=== PATIENT | female | born 1980 | race American Indian/Alaskan Native ===

== ENCOUNTER 2019-07-24 07:11 | Emergency (ER) | payer BC, OTHER ==
[2019-07-24] MEDS ORDERED: methylPREDNISolone Sodium Succinate 125 MG/2 ML SDV IM ONE (07:56)
--- NOTE | 2019-07-24 08:47 | EDM.PDOC ---
ED HPI GENERAL MEDICAL PROBLEM - General Chief Complaint: ENT Problem Stated Complaint: SORE THROAT Time Seen by Provider: 07/24/19 07:50 Source of Information: Reports: Patient History Limitations: Reports: No Limitations - History of Present Illness INITIAL COMMENTS - FREE TEXT/NARRATIVE: HISTORY AND PHYSICAL: History of present illness: Patient is a 39-year-old female who presents to the ED today with concern of throat discomfort and feeling as if something is "stuck" in her throat. Patient states that she had this sensation occur when she woke up this morning. Patient states that times when the sensation of feeling like something is "stuck" has to take a deep breath. Patient states that this is not been related to eating or drinking and she has been able to swallow liquids and solids without difficulty. Patient states that is the front of her throat that is sore and feels as if the muscles around it are sore. Patient denies any other symptoms or concerns. Patient denies fever, chills, chest pain, shortness of breath, or cough. Denies headache, neck stiff ness, change in vision, syncope, or near syncope. Denies nausea, vomiting, abdominal pain, diarrhea, constipation, or dysuria. Has not noted any blood in urine or stool. Patient has been eating and drinking appropriately. Review of systems: As per history of present illness and below otherwise all systems reviewed and negative. Past medical history: As per history of present illness and as reviewed below otherwise noncontributory. Surgical history: As per history of present illness and as reviewed below otherwise noncontributory. Social history: See social history for further information Family history: As per history of present illness and as reviewed below otherwise noncontributory. Physical exam: General: Patient is alert, oriented, and in no acute distress. Patient sitting comfortably on exam table. HEENT: No lip edema, tongue edema, or oropharyngeal edema. No stridor. Otherwise, atraumatic, normocephalic, pupils equal and reactive bilaterally, negative for conjunctival pallor or scleral icterus, mucous membranes moist, TMs normal bilaterally, throat mildly erythematous without exudate, uvula midline, neck supple, nontender, trachea midline. No drooling or trismus noted. No meningeal signs. No hot potato voice noted. Lungs: Clear to auscultation, breath sounds equal bilaterally, chest nontender. Heart: S1S2, regular rate and rhythm without overt murmur Abdomen: Soft, nondistended, nontender. Negative for masses or hepatosplenomegaly. Negative for costovertebral tenderness. Pelvis: Stable nontender. Genitourinary: Deferred. Rectal: Deferred. Skin: Intact, warm, dry. No lesions or rashes noted. Extremities: Atraumatic, negative for cords or calf pain. Neurovascular unremarkable. Neuro: Awake, alert, oriented. Cranial nerves II through XII unremarkable. Cerebellum unremarkable. Motor and sensory unremarkable throughout. Exam nonfocal. Notes: HEART score 0. While awaiting imaging results, patient states she is starting to feel a burning chest discomfort. Additional diagnotics performed. Discussed importance for follow-up with a primary care provider. Voices understanding and is agreeable to plan of care. Denies any further questions or concerns at this time. Diagnostics: Soft tissue neck XR, Strep, EKG, CBC, CMP, UA, uhcg, CXR, trop, lipase, Therapeutics: Solumedrol Prescription: None Impression: Chest pain, unspecified Throat discomfort Plan: 1. You can alternate ibuprofen and Tylenol as directed for pain and discomfort. 2. Follow-up with a primary care provider as discussed. Return to the ED as needed and as discussed. Definitive disposition and diagnosis as appropriate pending reevaluation and review of above. throat Pain Score (Numeric/FACES): 4 - Related Data Allergies Allergy/AdvReac Type Severity Reaction Status Date / Time Iodinated Contrast Media Allergy Sneezing Verified 07/24/19 07:25 [Iodinated Contrast Media - IV Dye] iodine Allergy Sneezing Verified 07/24/19 07:25 latex Allergy Swelling Verified 07/24/19 07:25 lidocaine Allergy Rash Verified 07/24/19 07:25 meperidine HCl [From Demerol] Allergy Swelling Verified 07/24/19 07:25 Penicillins Allergy Rash Verified 07/24/19 07:25 Home Meds: Home Meds azaTHIOprine [Azathioprine] 3 tab PO DAILY 07/24/19 [History] Past Medical History Gastrointestinal History: Reports: Other (See Below) Other Gastrointestinal History: ulcerative colitis - Infectious Disease History Infectious Disease History: Reports: Chicken Pox - Past Surgical History GI Surgical History: Reports: Colonoscopy Social & Family History - Family History Family Medical History: Noncontributory - Tobacco Use Smoking Status *Q: Never Smoker - Recreational Drug Use Recreational Drug Use: No ED ROS GENERAL - Review of Systems Review Of Systems: Comprehensive ROS is negative, except as noted in HPI. ED EXAM, GENERAL - Physical Exam Exam: See Below (see dictation) Course - Vital Signs Last Recorded V/S: Last Vital Signs Temp 97.2 F 07/24/19 09:39 Pulse 82 07/24/19 10:25 Resp 18 07/24/19 10:25 BP 127/83 07/24/19 10:25 Pulse Ox 98 07/24/19 10:25 - Orders/Labs/Meds Orders: Active Orders 24 hr Category Date Time Status EKG Documentation Completion [RC] STAT Care 07/24/19 09:25 Active CULTURE STREP A CONFIRMATION [RM] Stat Lab 07/24/19 09:00 Results STREP SCRN A RAPID W CULT CONF [RM] Stat Lab 07/24/19 09:00 Results Labs: Laboratory Tests 07/24/19 07/24/19 07/24/19 Range/Units 09:46 09:46 10:01 WBC 7.13 (4.0-11.0) K/uL RBC 4.48 (4.30-5.90) M/uL Hgb 14.1 (12.0-16.0) g/dL Hct 41.4 (36.0-46.0) % MCV 92.4 (80.0-98.0) fL MCH 31.5 (27.0-32.0) pg MCHC 34.1 (31.0-37.0) g/dL RDW Std Deviation 44.2 (28.0-62.0) fl RDW Coeff of Stephen 13 (11.0-15.0) % Plt Count 374 (150-400) K/uL MPV 9.30 (7.40-12.00) fL Neut % (Auto) 70.9 (48.0-80.0) % Lymph % (Auto) 20.6 (16.0-40.0) % Cochran % (Auto) 6.9 (0.0-15.0) % Eos % (Auto) 0.8 (0.0-7.0) % Baso % (Auto) 0.8 (0.0-1.5) % Neut # (Auto) 5.1 (1.4-5.7) K/uL Lymph # (Auto) 1.5 (0.6-2.4) K/uL Cochran # (Auto) 0.5 (0.0-0.8) K/uL Eos # (Auto) 0.1 (0.0-0.7) K/uL Baso # (Auto) 0.1 (0.0-0.1) K/uL Nucleated RBC % 0.0 /100WBC Nucleated RBCs # 0 K/uL Sodium 141 (136-145) mmol/L Potassium 4.3 (3.5-5.1) mmol/L Chloride 104 (98-107) mmol/L Carbon Dioxide 30.0 (21.0-32.0) mmol/L BUN 11 (7.0-18.0) mg/dL Creatinine 0.9 (0.6-1.0) mg/dL Est Cr Clr Drug Dosing 70.11 mL/min Estimated GFR (MDRD) > 60.0 ml/min Glucose 96 (74-106) mg/dL Calcium 9.8 (8.5-10.1) mg/dL Total Bilirubin 0.5 (0.2-1.0) mg/dL AST 15 (15-37) IU/L ALT 24 (14-63) IU/L Alkaline Phosphatase 57 (46-116) U/L Troponin I < 0.050 (0.000-0.056) ng/mL Total Protein 8.0 (6.4-8.2) g/dL Albumin 4.4 (3.4-5.0) g/dL Globulin 3.6 (2.6-4.0) g/dL Albumin/Globulin Ratio 1.2 (0.9-1.6) Lipase 94 (73-393) U/L Urine Color YELLOW Urine Appearance CLEAR Urine pH 7.5 (5.0-8.0) Ur Specific [place] 1.015 (1.001-1.035) Urine Protein NEGATIVE (NEGATIVE) mg/dL Urine Glucose (UA) NEGATIVE (NEGATIVE) mg/dL Urine Ketones NEGATIVE (NEGATIVE) mg/dL Urine Occult Blood NEGATIVE (NEGATIVE) Urine Nitrite NEGATIVE (NEGATIVE) Urine Bilirubin NEGATIVE (NEGATIVE) Urine Urobilinogen 0.2 (<2.0) EU/dL Ur Leukocyte Esterase NEGATIVE (NEGATIVE) Urine HCG, Qual (NEGATIVE) 07/24/19 Range/Units 10:01 WBC (4.0-11.0) K/uL RBC (4.30-5.90) M/uL Hgb (12.0-16.0) g/dL Hct (36.0-46.0) % MCV (80.0-98.0) fL MCH (27.0-32.0) pg MCHC (31.0-37.0) g/dL RDW Std Deviation (28.0-62.0) fl RDW Coeff of Stephen (11.0-15.0) % Plt Count (150-400) K/uL MPV (7.40-12.00) fL Neut % (Auto) (48.0-80.0) % Lymph % (Auto) (16.0-40.0) % [place]ran % (Auto) (0.0-15.0) % Eos % (Auto) (0.0-7.0) % Baso % (Auto) (0.0-1.5) % Neut # (Auto) (1.4-5.7) K/uL Lymph # (Auto) (0.6-2.4) K/uL [place]ran # (Auto) (0.0-0.8) K/uL Eos # (Auto) (0.0-0.7) K/uL Baso # (Auto) (0.0-0.1) K/uL Nucleated RBC % /100WBC Nucleated RBCs # K/uL Sodium (136-145) mmol/L Potassium (3.5-5.1) mmol/L Chloride (98-107) mmol/L Carbon Dioxide (21.0-32.0) mmol/L BUN (7.0-18.0) mg/dL Creatinine (0.6-1.0) mg/dL Est Cr Clr Drug Dosing mL/min Estimated GFR (MDRD) ml/min Glucose (74-106) mg/dL Calcium (8.5-10.1) mg/dL Total Bilirubin (0.2-1.0) mg/dL AST (15-37) IU/L ALT (14-63) IU/L Alkaline Phosphatase (46-116) U/L Troponin I (0.000-0.056) ng/mL Total Protein (6.4-8.2) g/dL Albumin (3.4-5.0) g/dL Globulin (2.6-4.0) g/dL Albumin/Globulin Ratio (0.9-1.6) Lipase (73-393) U/L Urine Color Urine Appearance Urine pH (5.0-8.0) Ur Specific [place] (1.001-1.035) Urine Protein (NEGATIVE) mg/dL Urine Glucose (UA) (NEGATIVE) mg/dL Urine Ketones (NEGATIVE) mg/dL Urine Occult Blood (NEGATIVE) Urine Nitrite (NEGATIVE) Urine Bilirubin (NEGATIVE) Urine Urobilinogen (<2.0) EU/dL Ur Leukocyte Esterase (NEGATIVE) Urine HCG, Qual NEGATIVE (NEGATIVE) Meds: Medications Discontinued Medications Generic Name Dose Route Start Last Admin Trade Name Christian PRN Reason Stop Dose Admin Methylprednisolone Sodium Succinate 125 mg 07/24/19 07:56 07/24/19 08:44 Solu-Medrol IM 07/24/19 07:57 125 mg ONETIME ONE Administration Departure - Departure Time of Disposition: 10:23 Disposition: Home, Self-Care 01 Clinical Impression: Throat discomfort Chest pain Qualifiers: Chest pain type: unspecified Qualified Code(s): R07.9 - Chest pain, unspecified - Discharge Information Instructions: Nonspecific Chest Pain, Adult, [id number], Sore Throat, Easy-to -Read Referrals: PCP,None [Primary Care Provider] - Forms: ED Department Discharge Additional Instructions: The following information is given to patients seen in the emergency department who are being discharged to home. This information is to outline your options for follow-up care. We provide all patients seen in our emergency department with a follow-up referral. The need for follow-up, as well as the timing and circumstances, are variable depending upon the specifics of your emergency department visit. If you don't have a primary care physician on staff, we will provide you with a referral. We always advise you to contact your personal physician following an emergency department visit to inform them of the circumstance of the visit and for follow-up with them and/or the need for any referrals to a consulting specialist. The emergency department will also refer you to a specialist when appropriate. This referral assures that you have the opportunity for follow-up care with a specialist. All of these measure are taken in an effort to provide you with optimal care, which includes your follow-up. Under all circumstances we always encourage you to contact your private physician who remains a resource for coordinating your care. When calling for follow-up care, please make the office aware that this follow-up is from your recent emergency room visit. If for any reason you are refused follow-up, please contact the [facility] Emergency Department at and asked to speak to the emergency department charge nurse. [facility] [address] [place] [id number] [facility] [address] [place] [id number] 1. You can alternate ibuprofen and Tylenol as directed for pain and discomfort. 2. Follow-up with a primary care provider as discussed. Return to the ED as needed and as discussed. Sepsis Event Note - Evaluation Sepsis Screening Result: No Definite Risk - Focused Exam Vital Signs: Vital Signs Temp Pulse Resp BP Pulse Ox 07/24/19 10:25 82 18 127/83 98 07/24/19 09:39 97.2 F 70 18 138/82 99 07/24/19 08:43 74 18 142/84 H 99 07/24/19 07:25 97.8 F 80 20 150/93 H 100 Date Exam was Performed: 07/24/19 Time Exam was Performed: 14:28 - My Orders Last 24 Hours: My Active Orders 07/24/19 09:00 CULTURE STREP A CONFIRMATION [RM] Stat STREP SCRN A RAPID W CULT CONF [RM] Stat 07/24/19 09:25 EKG Documentation Completion [RC] STAT - Assessment/Plan Last 24 Hours: My Active Orders 07/24/19 09:00 CULTURE STREP A CONFIRMATION [RM] Stat STREP SCRN A RAPID W CULT CONF [RM] Stat 07/24/19 09:25 EKG Documentation Completion [RC] STAT
--- NOTE | 2019-07-24 09:50 | CR ---
HISTORY: Anterior neck pain. TECHNIQUE: Two views of the soft tissues of the neck. COMPARISON: No prior. FINDINGS: The epiglottis appears unremarkable. No prevertebral soft tissue swelling. Minor loss of disc height at C5-C6. Disc height at other levels is maintained. IMPRESSION: No prevertebral soft tissue swelling or abnormal thickening of the epiglottis. Dictated by Jerome Bell MD @ 07/24/2019 9:48:22 AM Dictated by: Jerome Bell MD @ 07/24/2019 09:48:26 (Electronically Signed)
--- NOTE | 2019-07-24 10:14 | CR ---
HISTORY: Chest pain. TECHNIQUE: One view chest. COMPARISON: No prior. FINDINGS: Cardiac size and pulmonary vasculature are within normal limits. There is no lung infiltrate or pulmonary edema. No pneumothorax or pleural effusion. No acute bony abnormality. IMPRESSION: No acute disease. Dictated by Jerome Bell MD @ 07/24/2019 10:12:16 AM Dictated by: Jerome Bell MD @ 07/24/2019 10:12:21 (Electronically Signed)
[2019-07-24 10:19] LABS: BLOOD UREA NITROGEN,BUN 11 mg/dL (7.0-18.0); CHLORIDE,CL 104 mmol/L (98-107); GLUCOSE RANDOM 96 mg/dL (74-106); LIPASE 94 U/L (73-393); POTASSIUM,K 4.3 mmol/L (3.5-5.1); SODIUM,NA 141 mmol/L (136-145)
== END 2019-07-24 10:30 | disposition home or self-care (01) ==
LOC: MW.ED 07:11
DX: R07.0 Pain in throat (principal); R07.9 Chest pain, unspecified; Z88.0 Allergy status to penicillin; Z91.040 Latex allergy status; Z91.041 Radiographic dye allergy status; Z88.8 Allergy status to other drugs, medicaments and biological substances; Z79.899 Other long term (current) drug therapy
CPT/HCPCS: 36415; 70360; 71045; 80053; 81003; 81025; 83690; 84484; 85025; 87081; 87880; 93005; 96372; 99283; J2930

== ENCOUNTER 2019-07-25 12:56 | Emergency (ER) | payer BC, OTHER ==
[2019-07-25] MEDS ORDERED: Albuterol/Ipratropium 3.0-0.5 MG/3 ML Neb Soln NEB ONE (13:57)
[2019-07-25] MEDS ORDERED: LORazepam 1 MG Tab PO ONE (13:58)
--- NOTE | 2019-07-25 14:29 | EDM.PDOC ---
ED [facility] GENERAL MEDICAL PROBLEM - General Chief Complaint: ENT Problem Stated Complaint: SORE THROAT Time Seen by Provider: 07/25/19 13:04 Source of Information: Reports: Patient History Limitations: Reports: No Limitations - History of Present Illness INITIAL COMMENTS - FREE TEXT/NARRATIVE: HISTORY AND PHYSICAL: History of present illness: Patient is a 39-year-old female who presents to the ED today with concern of various complaints. Patient states she is currently having a "burning sensation " in her throat and chest and was seen and evaluated yesterday in the ED for this as well. Patient states after being seen in the ED yesterday, she had improvement of her symptoms until she woke up again this morning. Patient states she had a return of the sensation and decided to take prednisone 30 mg at home at about 10 this morning thinking that maybe this would help her symptoms but has not. Patient states she has prednisone available to her for her ulcerative colitis. Patient states her symptoms have returned again and she is continuing to have the burning sensation in her throat and her chest and states that she has also had palpitations along with it. Patient also complains of feeling like her throat is more swollen into her lungs which makes her feel like she has to take a deep breath in, which she states is how she felt yesterday. Patient states she has checked her heart rate and it has been 120-130s but then will go away after a few minutes. Patient states when this occurs she feels anxious and the burning sensation in her chest worsens. Patient does express that she does feel anxious and that this is worsening her symptoms. Patient denies fever, chills, chest pain, shortness of breath, or cough. Denies headache, neck stiff ness, change in vision, syncope, or near syncope. Denies nausea, vomiting, abdominal pain, diarrhea, constipation, or dysuria. Has not noted any blood in urine or stool. Patient has been eating and drinking appropriately. Review of systems: As per history of present illness and below otherwise all systems reviewed and negative. Past medical history: As per history of present illness and as reviewed below otherwise noncontributory. Surgical history: As per history of present illness and as reviewed below otherwise noncontributory. Social history: See social history for further information Family history: As per history of present illness and as reviewed below otherwise noncontributory. Physical exam: General: Patient is alert, oriented, and in no acute distress. Patient sitting comfortably on exam table but anxious appearing. HEENT: No lip edema, tongue edema, or oropharyngeal edema. No stridor. Atraumatic, normocephalic, pupils equal and reactive bilaterally, negative for conjunctival pallor or scleral icterus, mucous membranes moist, TMs normal bilaterally, throat clear, neck supple, nontender, trachea midline. No drooling or trismus noted. No meningeal signs. No hot potato voice noted. Lungs: Clear to auscultation, breath sounds equal bilaterally, chest nontender. Heart: S1S2, regular rate and rhythm without overt murmur Abdomen: Soft, nondistended, nontender. Negative for masses or hepatosplenomegaly. Negative for costovertebral tenderness. Pelvis: Stable nontender. Genitourinary: Deferred. Rectal: Deferred. Skin: Intact, warm, dry. No lesions or rashes noted. Extremities: Atraumatic, negative for cords or calf pain. Neurovascular unremarkable. Neuro: Awake, alert, oriented. Cranial nerves II through XII unremarkable. Cerebellum unremarkable. Motor and sensory unremarkable throughout. Exam nonfocal. Notes: I personally evaluated the patient yesterday in the ED. Patient does have a difficult time elaborating/expressing her symptoms to me both yesterday and today and in the ED today and is vague about her symptoms. Yesterday, she did receive a full cardiac work-up, including chest x-ray, troponin, EKG, and strep swab which were negative. Patient also received a soft tissue neck x-ray yesterday due to the sensation of feeling as if she has something stuck in her throat and swelling of throat which was unremarkable and exam yesterday showed no oropharyngeal edema. Exam today also negative for oropharyngeal edema or stridor. Patient does express improvement of symptoms with therapeutics in the ED today. EKG shows no acute changes from yesterday to today and reviewed with Dr. Haro. Dr. Haro verbally involved in patient care. Patient placed on expedited follow-up both with primary care provider. Voices understanding and is agreeable to plan of care. Denies any further questions or concerns at this time. Diagnostics: CBC, CMP, UA, lipase, troponin, ddimer, chest ct Therapeutics: Ativan, Duoneb Prescription: Proair inhaler, duoneb Impression: Atypical chest pain Throat discomfort Plan: 1. Take medication as prescribed. You can alternate ibuprofen and Tylenol as directed for pain and discomfort. 2. Follow-up with a primary care provider as discussed. Return to the ED as needed and as discussed. Definitive disposition and diagnosis as appropriate pending reevaluation and review of above. Throat Pain Score (Numeric/FACES): 5 - Related Data Allergies Allergy/AdvReac Type Severity Reaction Status Date / Time Iodinated Contrast Media Allergy Sneezing Verified 07/25/19 13:09 [Iodinated Contrast Media - IV Dye] iodine Allergy Sneezing Verified 07/25/19 13:09 latex Allergy Swelling Verified 07/25/19 13:09 lidocaine Allergy Rash Verified 07/25/19 13:09 meperidine HCl [From Demerol] Allergy Swelling Verified 07/25/19 13:09 Penicillins Allergy Rash Verified 07/25/19 13:09 Home Meds: Home Meds azaTHIOprine [Azathioprine] 3 tab PO DAILY 07/24/19 [History] Past Medical History Gastrointestinal History: Reports: Other (See Below) Other Gastrointestinal History: ulcerative colitis - Infectious Disease History Infectious Disease History: Reports: Chicken Pox - Past Surgical History GI Surgical History: Reports: Colonoscopy Social & Family History - Family History Family Medical History: Noncontributory - Tobacco Use Smoking Status *Q: Never Smoker Second Hand Smoke Exposure: No - Caffeine Use Caffeine Use: Reports: Tea, Other - Recreational Drug Use Recreational Drug Use: No ED ROS GENERAL - Review of Systems Review Of Systems: Comprehensive ROS is negative, except as noted in HPI. ED EXAM, GENERAL - Physical Exam Exam: See Below (see dictation) Course - Vital Signs Last Recorded V/S: Last Vital Signs Temp 97.5 F 07/25/19 13:03 Pulse 70 07/25/19 13:03 Resp 18 07/25/19 13:03 BP 145/85 H 07/25/19 13:03 Pulse Ox 97 07/25/19 13:03 - Orders/Labs/Meds Orders: Active Orders 24 hr Category Date Time Status EKG Documentation Completion [RC] STAT Care 07/25/19 13:10 Active RT Aerosol Therapy [RC] ASDIRECTED Care 07/25/19 13:57 Active Labs: Laboratory Tests 07/25/19 07/25/19 07/25/19 Range/Units 14:09 14:09 14:09 WBC 12.80 H (4.0-11.0) K/uL RBC 4.27 L (4.30-5.90) M/uL Hgb 13.7 (12.0-16.0) g/dL Hct 39.4 (36.0-46.0) % MCV 92.3 (80.0-98.0) fL MCH 32.1 H (27.0-32.0) pg MCHC 34.8 (31.0-37.0) g/dL RDW Std Deviation 44.6 (28.0-62.0) fl RDW Coeff of Stephen 13 (11.0-15.0) % Plt Count 348 (150-400) K/uL MPV 9.50 (7.40-12.00) fL Neut % (Auto) 92.6 H (48.0-80.0) % Lymph % (Auto) 4.5 L (16.0-40.0) % [place] % (Auto) 2.6 (0.0-15.0) % Eos % (Auto) 0.1 (0.0-7.0) % Baso % (Auto) 0.2 (0.0-1.5) % Neut # (Auto) 11.9 H (1.4-5.7) K/uL Lymph # (Auto) 0.6 (0.6-2.4) K/uL [place] # (Auto) 0.3 (0.0-0.8) K/uL Eos # (Auto) 0.0 (0.0-0.7) K/uL Baso # (Auto) 0.0 (0.0-0.1) K/uL Nucleated RBC % 0.0 /100WBC Nucleated RBCs # 0 K/uL D-Dimer, Quantitative 0.25 (0.0-0.50) mg/L FEU Sodium 139 (136-145) mmol/L Potassium 3.8 (3.5-5.1) mmol/L Chloride 102 (98-107) mmol/L Carbon Dioxide 27.9 (21.0-32.0) mmol/L BUN 16 (7.0-18.0) mg/dL Creatinine 1.0 (0.6-1.0) mg/dL Est Cr Clr Drug Dosing 63.10 mL/min Estimated GFR (MDRD) > 60.0 ml/min Glucose 115 H (74-106) mg/dL Calcium 9.1 (8.5-10.1) mg/dL Total Bilirubin 0.4 (0.2-1.0) mg/dL AST 20 (15-37) IU/L ALT 27 (14-63) IU/L Alkaline Phosphatase 64 (46-116) U/L Troponin I < 0.050 (0.000-0.056) ng/mL Total Protein 7.9 (6.4-8.2) g/dL Albumin 4.3 (3.4-5.0) g/dL Globulin 3.6 (2.6-4.0) g/dL Albumin/Globulin Ratio 1.2 (0.9-1.6) Lipase 121 (73-393) U/L Urine Color Urine Appearance Urine pH (5.0-8.0) Ur Specific [place] (1.001-1.035) Urine Protein (NEGATIVE) mg/dL Urine Glucose (UA) (NEGATIVE) mg/dL Urine Ketones (NEGATIVE) mg/dL Urine Occult Blood (NEGATIVE) Urine Nitrite (NEGATIVE) Urine Bilirubin (NEGATIVE) Urine Urobilinogen (<2.0) EU/dL Ur Leukocyte Esterase (NEGATIVE) Urine RBC (0-2/HPF) Urine WBC (0-5/HPF) Ur Epithelial Cells (NONE-FEW) Urine Bacteria (NEGATIVE) 07/25/19 Range/Units 14:30 WBC (4.0-11.0) K/uL RBC (4.30-5.90) M/uL Hgb (12.0-16.0) g/dL Hct (36.0-46.0) % MCV (80.0-98.0) fL MCH (27.0-32.0) pg MCHC (31.0-37.0) g/dL RDW Std Deviation (28.0-62.0) fl RDW Coeff of Stephen (11.0-15.0) % Plt Count (150-400) K/uL MPV (7.40-12.00) fL Neut % (Auto) (48.0-80.0) % Lymph % (Auto) (16.0-40.0) % [place] % (Auto) (0.0-15.0) % Eos % (Auto) (0.0-7.0) % Baso % (Auto) (0.0-1.5) % Neut # (Auto) (1.4-5.7) K/uL Lymph # (Auto) (0.6-2.4) K/uL [place] # (Auto) (0.0-0.8) K/uL Eos # (Auto) (0.0-0.7) K/uL Baso # (Auto) (0.0-0.1) K/uL Nucleated RBC % /100WBC Nucleated RBCs # K/uL D-Dimer, Quantitative (0.0-0.50) mg/L FEU Sodium (136-145) mmol/L Potassium (3.5-5.1) mmol/L Chloride (98-107) mmol/L Carbon Dioxide (21.0-32.0) mmol/L BUN (7.0-18.0) mg/dL Creatinine (0.6-1.0) mg/dL Est Cr Clr Drug Dosing mL/min Estimated GFR (MDRD) ml/min Glucose (74-106) mg/dL Calcium (8.5-10.1) mg/dL Total Bilirubin (0.2-1.0) mg/dL AST (15-37) IU/L ALT (14-63) IU/L Alkaline Phosphatase (46-116) U/L Troponin I (0.000-0.056) ng/mL Total Protein (6.4-8.2) g/dL Albumin (3.4-5.0) g/dL Globulin (2.6-4.0) g/dL Albumin/Globulin Ratio (0.9-1.6) Lipase (73-393) U/L Urine Color YELLOW Urine Appearance CLEAR Urine pH 6.5 (5.0-8.0) Ur Specific [place] 1.010 (1.001-1.035) Urine Protein NEGATIVE (NEGATIVE) mg/dL Urine Glucose (UA) NEGATIVE (NEGATIVE) mg/dL Urine Ketones NEGATIVE (NEGATIVE) mg/dL Urine Occult Blood TRACE-INTACT H (NEGATIVE) Urine Nitrite NEGATIVE (NEGATIVE) Urine Bilirubin NEGATIVE (NEGATIVE) Urine Urobilinogen 0.2 (<2.0) EU/dL Ur Leukocyte Esterase NEGATIVE (NEGATIVE) Urine RBC 0-1 (0-2/HPF) Urine WBC 0-1 (0-5/HPF) Ur Epithelial Cells OCCASIONAL (NONE-FEW) Urine Bacteria RARE (NEGATIVE) Meds: Medications Discontinued Medications Generic Name Dose Route Start Last Admin Trade Name Christian PRN Reason Stop Dose Admin Albuterol/Ipratropium 3 ml 07/25/19 13:57 07/25/19 14:19 Duoneb 3.0-0.5 Mg/3 Ml NEB 07/25/19 13:58 3 ml ONETIME ONE Administration Lorazepam 1 mg 07/25/19 13:58 07/25/19 14:30 Ativan PO 07/25/19 13:59 1 mg ONETIME ONE Administration Departure - Departure Time of Disposition: 15:24 Disposition: Home, Self-Care 01 Clinical Impression: Throat discomfort Chest pain Qualifiers: Chest pain type: unspecified Qualified Code(s): R07.9 - Chest pain, unspecified - Discharge Information Referrals: PCP,None [Primary Care Provider] - Forms: ED Department Discharge Additional Instructions: The following information is given to patients seen in the emergency department who are being discharged to home. This information is to outline your options for follow-up care. We provide all patients seen in our emergency department with a follow-up referral. The need for follow-up, as well as the timing and circumstances, are variable depending upon the specifics of your emergency department visit. If you don't have a primary care physician on staff, we will provide you with a referral. We always advise you to contact your personal physician following an emergency department visit to inform them of the circumstance of the visit and for follow-up with them and/or the need for any referrals to a consulting specialist. The emergency department will also refer you to a specialist when appropriate. This referral assures that you have the opportunity for follow-up care with a specialist. All of these measure are taken in an effort to provide you with optimal care, which includes your follow-up. Under all circumstances we always encourage you to contact your private physician who remains a resource for coordinating your care. When calling for follow-up care, please make the office aware that this follow-up is from your recent emergency room visit. If for any reason you are refused follow-up, please contact the [facility] Emergency Department at and asked to speak to the emergency department charge nurse. DEVANG [facility] [address] [place] [address] [facility] [address] [place] [address] 1. Take medication as prescribed. You can alternate ibuprofen and Tylenol as directed for pain and discomfort. 2. Follow-up with a primary care provider as discussed. Return to the ED as needed and as discussed. Sepsis Event Note - Evaluation Sepsis Screening Result: No Definite Risk - Focused Exam Vital Signs: Vital Signs Temp Pulse Resp BP Pulse Ox 07/25/19 13:03 97.5 F 70 18 145/85 H 97 Date Exam was Performed: 07/25/19 Time Exam was Performed: 15:20 - My Orders Last 24 Hours: My Active Orders 07/25/19 13:10 EKG Documentation Completion [RC] STAT 07/25/19 13:57 RT Aerosol Therapy [RC] ASDIRECTED - Assessment/Plan Last 24 Hours: My Active Orders 07/25/19 13:10 EKG Documentation Completion [RC] STAT 07/25/19 13:57 RT Aerosol Therapy [RC] ASDIRECTED
[2019-07-25 14:40] LABS: BLOOD UREA NITROGEN,BUN 16 mg/dL (7.0-18.0); CARBON DIOXIDE,CO2 27.9 mmol/L (21.0-32.0); CHLORIDE,CL 102 mmol/L (98-107); GLUCOSE RANDOM 115 mg/dL (74-106); LIPASE 121 U/L (73-393); POTASSIUM,K 3.8 mmol/L (3.5-5.1); SODIUM,NA 139 mmol/L (136-145)
--- NOTE | 2019-07-25 15:12 | CT ---
INDICATION: Shortness of breath. Dyspnea. Productive cough. TECHNIQUE: Noncontrast chest CT. COMPARISON: Correlation is made with a portable chest x-ray July 24, 2019. FINDINGS: Both lungs are expanded and clear. The trachea and mainstem bronchi are patent and clear. Overall heart size and pulmonary vascularity are normal. There is no evidence for thoracic lymphadenopathy, pleural, or pericardial effusions. The included breast tissue and included thyroid gland are within normal limits. Images of the upper abdomen demonstrate a normal size spleen. The visualized left adrenal gland is unremarkable. IMPRESSION: Negative noncontrast chest CT. Please note that all CT scans at this facility use dose modulation, iterative reconstruction, and/or weight-based dosing when appropriate to reduce radiation dose to as low as reasonably achievable. Dictated by Vishal Phillips MD @ Jul 25 2019 3:07PM Signed by Dr. Vishal Phillips @ Jul 25 2019 3:10PM
== END 2019-07-25 15:50 | disposition home or self-care (01) ==
LOC: MW.ED 12:56
DX: R07.89 Other chest pain (principal); R07.0 Pain in throat; Z91.040 Latex allergy status; Z88.0 Allergy status to penicillin; Z88.5 Allergy status to narcotic agent; Z91.09 Other allergy status, other than to drugs and biological substances; Z91.041 Radiographic dye allergy status
CPT/HCPCS: 36415; 71250; 80053; 81001; 83690; 84484; 85025; 85379; 93005; 94640; 99284; A9270; 99283; J7620-GY